=== PATIENT | male | born 1955 | race Caucasian/White ===

== ENCOUNTER 2023-12-13 15:01 | Emergency (ER) | payer BC, OTHER ==
[2023-12-13 15:29] VITALS: RESP 18; TEMP 99.1; O2SAT 97
--- NOTE | 2023-12-13 15:58 | ERPHSYRPT ---
- History of Present Illness Time Seen by Provider: 12/13/23 15:55 Source: patient Exam Limitations: no limitations Patient Subjective Stated Complaint: pt states he was pulling a coworker down and hurt his arm Triage Nursing Assessment: pt ambulated into the er; pt is axo x4; c/o arm pain; pt states 2/10 pain to rt arm; strong rt radial pulse; good cap refill to rt hand; no decreased ROM to RUE; abrasion to rt wrist; skin PDW; no respiratory d istress present; vitals wnl Physician History: 68-year-old male presents to our ED as a referral from his work for evaluation of pain to his right hand wrist area and right shoulder. Patient states he helped a coworker. In the process patient pulled his coworker back and injured his right upper extremity. Patient declined pain medication. Patient has some tenderness to palpation at the right shoulder and right proximal hand or wrist. No blunt trauma. No fever. No nausea vomiting or diaphoresis pain is localized no radiation. No numbness tingling or weakness. Patient otherwise feels well he voices no other complaints or concerns at this time. Portions of this note were created with voice recognition technology. There may be grammatical, spelling, punctuation or sound alike errors Timing/Duration: today Severity: moderate Modifying Factors: Improves With: movement Associated Symptoms: denies symptoms Allergies/Adverse Reactions: cephalexin Allergy (Verified 12/13/23 15:10) Rash Home Medications: Atorvastatin Calcium [Lipitor] 80 mg PO DAILY 12/13/23 [History] Chlorthalidone 25 mg PO DAILY 12/13/23 [History] Ezetimibe 10 mg [Zetia 10 MG] 10 mg PO DAILY 12/13/23 [History] Metformin HCl 500 mg [Glucophage 500 MG] 1,000 mg PO BIDWM 12/13/23 [History] Metoprolol Succinate 25 mg Xl* [Toprol-Xl 25MG Tablets] 25 mg PO DAILY 12/13/23 [History] Hx Tetanus, Diphtheria Vaccination/Date Given: Yes Hx Influenza Vaccination/Date Given: Yes Hx Pneumococcal Vaccination/Date Given: Yes Immunizations Up to Date: No Travel Risk - International Travel Have you traveled outside of the country in past 3 weeks: No - Emerging Infectious Disease Are you exhibiting symptoms associated with any current EIDs: No - Review of Systems Constitutional: No Symptoms, No Fever, No Chills Eyes: No Symptoms Ears, Nose, & Throat: No Symptoms Respiratory: No Symptoms, No Cough, No Dyspnea Cardiac: No Symptoms, No Chest Pain, No Edema, No Syncope Abdominal/Gastrointestinal: No Symptoms, No Abdominal Pain, No Nausea, No Vomi ting, No Diarrhea Genitourinary Symptoms: No Symptoms, No Dysuria Musculoskeletal: No Symptoms, No Back Pain, No Neck Pain Skin: No Symptoms, No Rash Neurological: No Symptoms, No Dizziness, No Focal Weakness, No Sensory Changes Psychological: No Symptoms Endocrine: No Symptoms Hematologic/Lymphatic: No Symptoms Immunological/Allergic: No Symptoms All Other Systems: Reviewed and Negative - Past Medical History Pertinent Past Medical History: Yes Neurological History: No Pertinent History ENT History: No Pertinent History Cardiac History: High Cholesterol, Hypertension Respiratory History: No Pertinent History Endocrine Medical History: Diabetes Type II Musculoskeletal History: No Pertinent History GI Medical History: Hernia History: Kidney Cancer Psycho-Social History: No Pertinent History Male Reproductive Disorders: No Pertinent History - Past Surgical History Past Surgical History: Yes Cardiac: CABG Gastrointestinal: Hernia Repair Genitourinary: Kidney Surgery Musculoskeletal: Orthopedic Surgery Other Surgical History: back surgery, rt kidney partial removal; quad bipass - Social History Smoking Status: Never smoker Exposure to second hand smoke: Yes (as a kid) Drug Use: none - Social Determinants of Health Will the patient participate in the screening: Yes Do you worry about a steady place to live?: No Do you have any problems with any of the following?: No known problems In the past 12 months,have you had to go without utilities?: No Transportation Issues: No Has anyone in your support network made you feel unsafe?: No Have you or anyone in your house had to go without enough: No - Nursing Vital Signs Nursing Vital Signs: Initial Vital Signs Temperature 99.1 F 12/13/23 15:15 Pulse Rate 94 H 12/13/23 15:15 Respiratory Rate 18 12/13/23 15:15 Blood Pressure 120/93 12/13/23 15:15 O2 Sat by Pulse Oximetry 97 12/13/23 15:15 Pain Scale Pain Intensity 2 - Physical Exam General Appearance: no apparent distress, alert Eye Exam: PERRL/EOMI, eyes nml inspection Ears, Nose, Throat Exam: normal ENT inspection, moist mucous membranes Neck Exam: normal inspection, full range of motion Respiratory Exam: normal breath sounds, lungs clear, airway intact, No respiratory distress Cardiovascular Exam: regular rate/rhythm, normal heart sounds, normal peripheral pulses Gastrointestinal/Abdomen Exam: soft, normal bowel sounds, No tenderness, No mass Back Exam: normal inspection, normal range of motion, No CVA tenderness, No vertebral tenderness Extremity Exam: normal inspection, normal range of motion, pelvis stable, other (Some tenderness to palpation at the right shoulder and right proximal hand. There is a superficial abrasion at the right proximal hand dorsal aspect. No laceration repair indicated.) Neurologic Exam: alert, oriented x 3, cooperative, normal mood/affect, nml cerebellar function, nml station & gait, sensation nml, No motor deficits Skin Exam: normal color, warm, dry, No rash Lymphatic Exam: No adenopathy SpO2 Interpretation: normal SpO2: 97 O2 Delivery: Room Air - Course Nursing assessment & vital signs reviewed: Yes - Radiology Exams Shoulder X-ray Interpretation: Interpreted by me (No fracture or dislocation) Hand X-ray Interpretation: Interpreted by me (No acute fracture or dislocation) Ordered Tests: Active Orders 24 hr Category Date Time Status HAND (MINIMUM 3 VIEWS) Stat Exams 12/13/23 15:12 Taken SHOULDER Stat Exams 12/13/23 15:11 Taken - Progress Progress: improved Progress Note: 68-year-old male presents to our ED for evaluation of right shoulder right hand pain. Physical exam with superficial abrasions and a right wrist dorsal aspect. X-rays negative for acute pathology. Patient declined pain medication. No indication for further workup will discharge home. Patient agrees to follow-up with his primary care doctor within 48 hours for reevaluation. Portions of this note were created with voice recognition technology. There may be grammatical, spelling, punctuation or sound alike errors Complexity problem addressed is moderate acute complicated. No critical care time. Complex data reviewed and analyzed is moderate. Test ordered test reviewed results analyzed and correlated clinically with history and physical exam. Dr. Kim independently reviewed the x-ray of the right hand and shoulder. Formal read pending. Risk of complication or risk of morbidity/mortality patient management is low. Vital stable. Time spent to discharge patient is approximately 10 minutes. Plan of care established for shared decision making. No social determinants of health present to impede follow-up. Follow-up. Portions of this note were created with voice recognition technology. There may be grammatical, spelling, punctuation or sound alike errors 12/13/23 15:59 Counseled pt/family regarding: diagnosis, need for follow-up, rad results - Departure Departure Disposition: Home Clinical Impression: Shoulder strain, Wrist sprain, Abrasion of wrist Condition: Stable Critical Care Time: No Additional Instructions: Discharge/Care Plan VANI SWANSON was seen on 12/13/23 in the Emergency Room. The patient was counseled regarding Diagnosis,Lab results, Imaging studies, need for follow up and when to return to the Emergency Room. Prescriptions given: Discharge Note I have spoken with the patient and/or caregivers. I have explained the patient's condition, diagnosis and treatment plan based on the information available to me at this time. I have answered the patient's and/or caregiver's questions and addressed any concerns. The patient and/or caregivers have as good understanding of the patient's diagnosis, condition and treatment plan as can be expected at this point. The vital signs have been stable. The patient's condition is stable and appropriate for discharge from the emergency department. The patient will pursue further outpatient evaluation with the primary care physician or other designated or consulting physician as outlined in the discharge instructions. The patient and/or caregivers are agreeable to this plan of care and follow-up instructions have been explained in detail. The patient and/or caregivers have received these instruction. The patient/and or caregivers are aware that any significant change in condition or worsening of symptoms should prompt an immediate return to this or the closest emergency department or call 911.
[2023-12-13 16:11] VITALS: BP 132/79; PULSE 79
--- NOTE | 2023-12-13 16:25 | XRAY ---
Indication: Pain. Comparison: None 3 view right shoulder demonstrates osteopenia, mild AC degenerative arthropathy, tiny right lung calcified granuloma, and CABG surgery. No other bony, articular, or soft tissue abnormalities.
--- NOTE | 2023-12-13 16:27 | XRAY ---
Indication: Pain. Comparison: None 3 view right hand demonstrates osteopenia, minimal degenerative changes all IP joints, moderate degenerative changes 1st MCP joint, and mild degenerative changes radiocarpal/distal radioulnar joint. Query old 5th metatarsal fracture. No other bony, articular, or soft tissue abnormalities.
== END 2023-12-13 16:11 | disposition home or self-care (01) ==
LOC: ED 15:01
DX: S63.501A Unspecified sprain of right wrist, initial encounter (principal); S46.911A Strain of unspecified muscle, fascia and tendon at shoulder and upper arm level, right arm, initial encounter; S60.811A Abrasion of right wrist, initial encounter; X50.0XXA Overexertion from strenuous movement or load, initial encounter; Y92.148 Other place in prison as the place of occurrence of the external cause; Y99.0 Civilian activity done for income or pay; E78.5 Hyperlipidemia, unspecified; I10 Essential (primary) hypertension; E11.9 Type 2 diabetes mellitus without complications; Z79.84 Long term (current) use of oral hypoglycemic drugs; Z79.899 Other long term (current) drug therapy
CPT/HCPCS: 73030; 73130; 99283